=== PATIENT | female | born 1990 | race Two or more races ===

== ENCOUNTER → 2024-11-15 | Outpatient (CLI) | payer MEDICAID, SELFPAY ==
[2024-11-12 14:43] LABS: Basophils # (Auto) 0.1 Thou/mm3 (0.0-0.2); Basophils % (Auto) 1 % (0-2.5); Eosinophils # (Auto) 0.1 Thou/mm3 (0.0-0.5); Eosinophils % (Auto) 1 % (0-10); Hematocrit 39.6 % (36.0-46.0); Hemoglobin 13.7 g/dL (12.0-16.0); Immature Granulocytes Auto 0.03 Thou/mm3 (0.00-0.00); Lymphocytes # (Auto) 2.4 Thou/mm3 (1.0-4.8); Lymphocytes % (Auto) 27 % (10-50); Mean Corpuscular HGB Conc 34.6 g/dl (31.0-37.0); Mean Corpuscular Hemoglobin 28.2 pg (25.0-35.0); Mean Corpuscular Volume 82 fL (80-100); Monocytes # (Auto) 0.5 Thou/mm3 (0.0-0.8); Monocytes % (Auto) 6 % (0-12); Neutrophils # (Auto) 5.7 Thou/mm3 (1.8-7.7); Neutrophils % (Auto) 65 % (37-80); Nucleated Red Blood Cell # 0.00 Thou/mm3 (0.00-0.00); Nucleated Red Blood Cell % 0 /100 WBC (0); Platelet Count 406 Thou/mm3 (140-440); RDW Standard Deviation 40.0 fL (36.4-46.3); Red Blood Count 4.85 Miln/mm3 (4.00-5.20); White Blood Count 8.8 Thou/mm3 (3.6-11.0)
[2024-11-12 14:50] LABS: INR 1.0 (0.9-1.3); Partial Thromboplastin Time 28.5 Seconds (22.0-36.0); Prothrombin Time 11.0 Seconds (9.0-12.2)
--- NOTE | 2024-11-15 08:30 | XR_ITS ---
Examination: Ultrasound soft tissue elbow TECHNIQUE: Grayscale sonographic images soft tissue elbow INDICATIONS: Palpable mass 4 years right elbow Date and time: November 15, 2024 0909 hours FINDINGS: Soft tissue mass 2.9 x 1.7 x 3.2 cm dorsal level IMPRESSION: Positive for soft tissue mass dorsal level
--- NOTE | 2024-11-15 08:30 | XR_ITS ---
Examination: Ultrasound-guided biopsy/aspiration soft tissue right elbow mass Ultrasound soft tissue extremity right elbow Date and time: 01/08/2024 0905 hours INDICATIONS: Possible lump in the elbow for years TECHNIQUE AND FINDINGS: Informed consent provided. Timeout performed. Skin prepped over the palpable lump in the right elbow and sterile drape applied hand hygiene ultrasound sterile technique 1% lidocaine administered for local anesthesia Utilizing ultrasonographic guidance core biopsies obtained of the palpable lump placed in preservative and for culture and sensitivity Estimated blood loss 0 cc IMPRESSION: Successful ultrasound-guided biopsy aspiration soft tissue right elbow mass
== END | disposition home or self-care (01) ==
LOC: SDIM 08:19
PROVIDERS: Radiology Diagnostic Radiology; PCP Nurse Practitioner Family; Referring Provider Nurse Practitioner Family; Visit Provider Nurse Practitioner Family
DX: R22.31 Localized swelling, mass and lump, right upper limb (principal); Z01.812 Encounter for preprocedural laboratory examination
CPT/HCPCS: 10030; 36415; 76882; 85025; 85610; 85730; 87070; 87075; 87205